=== PATIENT | male | born 1980 | race Caucasian/White ===

== ENCOUNTER 2017-01-11 22:10 | Emergency (ER) | payer BC ==
[~2017-01-11] VITALS: Ht 170.2 cm; Wt 77.1 kg
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
--- NOTE | 2017-01-11 22:21 | NUR ---
DR LEMA AT BEDSIDE FOR EVAL.
--- NOTE | 2017-01-11 22:58 | NUR ---
XRAY AT BEDSIDE
[2017-01-11] MEDS ORDERED: MORPHINE SULFATE INJ 2 MG/ML DISP.SYRIN IV ONE (23:00)
[2017-01-11] MEDS ORDERED: IV NS 0.9% 1,000 ML BAG IV ONE (23:00)
[2017-01-11] MEDS ORDERED: ONDANSETRON HCL/PF 4 MG/2 ML VIAL IVP ONE (23:00)
[2017-01-11] MEDS ORDERED: IV SET PRIMARY 1 EA INFUS.SET MC ONE (23:05)
[2017-01-11] MEDS ORDERED: ONDANSETRON HCL/PF 4 MG/2 ML VIAL ONE (23:05)
[2017-01-11] MEDS ORDERED: MORPHINE SULFATE INJ 4 MG/ML DISP.SYRIN ONE (23:05)
[2017-01-11] MEDS ORDERED: IV NS 0.9% 1,000 ML ONE (23:05)
[2017-01-11 23:18] LABS: BASOPHILS % (AUTO) 0.3 % (0.0-2.0); EOSINOPHILS # (AUTO) 0.1 /CMM (0.0-0.7); EOSINOPHILS % (AUTO) 1.1 % (0.0-6.0); HEMATOCRIT 46 % (39-51); HEMOGLOBIN 15.1 g/dL (13.5-17.5); LYMPHOCYTES # (AUTO) 2.2 /CMM (0.8-4.8); LYMPHOCYTES % (AUTO) 19.6 % (20.0-44.0); MEAN CORPUSCULAR HEMOGLOBIN 26 PG (26.0-33.0); MEAN CORPUSCULAR HGB CONC 33 g/dl (31.0-36.0); MEAN CORPUSCULAR VOLUME 79 fL (80-96); MONOCYTES # (AUTO) 1.1 /CMM (0.1-1.30); MONOCYTES % (AUTO) 9.5 % (2.0-12.0); NEUTROPHILS # (AUTO) 7.9 /CMM (1.8-8.9); NEUTROPHILS % (AUTO) 69.5 % (43.0-81.0); PLATELET COUNT (AUTO) 271 /CMM (150-450); RDW COEFFICIENT OF VARIATION 14.8 (11.5-15.0); RED BLOOD CELL COUNT(AUTO) 5.84 MIL/uL (4.5-6.0); WHITE BLOOD COUNT (AUTO) 11.4 K/uL (4.3-11.0)
[2017-01-11 23:31] LABS: CALCIUM, SERUM 8.8 mg/dL (8.5-10.1); POTASSIUM 3.9 mmol/L (3.5-5.1)
[2017-01-11 23:37] LABS: INR 0.97 (0.87-1.13); PROTHROMBIN TIME 10.4 SECS (9.5-12.7)
[2017-01-11] MEDS ORDERED: CT SWABBABLE VALVE TRANS SET 1 EA INFUS.SET MC ONE (23:39)
[2017-01-11] MEDS ORDERED: IOHEXOL-300 100 ML VIAL IV ONE (23:39)
[2017-01-11] MEDS ORDERED: IV NS 0.9% 250 ML IV ONE (23:39)
--- NOTE | 2017-01-11 23:48 | NUR ---
PT TO CT.
[2017-01-12] MEDS ORDERED: ONDANSETRON HCL/PF 4 MG/2 ML VIAL ONE (00:25)
[2017-01-12] MEDS ORDERED: HYDROMORPHONE 1 MG/1 ML DISP.SYRIN ONE (00:25)
[2017-01-12] MEDS ORDERED: ONDANSETRON HCL/PF 4 MG/2 ML VIAL IV ONE (00:30)
[2017-01-12] MEDS ORDERED: HYDROMORPHONE 1 MG/1 ML DISP.SYRIN IV ONE (00:30)
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
--- NOTE | 2017-01-12 01:28 | NUR ---
[facility] CALLED FOR HIGHER LEVEL OF CARE TRANSFER REQUEST. FACESHEET AND CT FAXED TO [phone]
--- NOTE | 2017-01-12 01:35 | NUR ---
PT PLACED ON C SPINE/ LOG ROLL PRECAUTION PER DR. LEMA.
--- NOTE | 2017-01-12 01:48 | NUR ---
[facility] ALS TRANSPOT 1HR
--- NOTE | 2017-01-12 01:53 | NUR ---
REPORT GIVEN TO JONATAN GARCÍA FOR CONTINUE OF CARE. [phone]. ACCEPTING ER MD: TRAUMA MD DR. MUNOZ.
[2017-01-12] MEDS ORDERED: LIDOCAINE 2% JEL UROJET 10 ML MM ONE (02:00)
--- NOTE | 2017-01-12 02:01 | NUR ---
URINE COLLECTED. CALLED LAB FOR HEAD OF SALES.
[2017-01-12 02:34] LABS: CANNABINOID, URINE POSITIVE (NEGATIVE); PHENCYCLIDINE SCREEN,URINE NEGATIVE (NEGATIVE)
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
[2017-01-12 02:52] VITALS: BP 127/72
== END 2017-01-12 03:02 ==
LOC: ER 22:12
DX: S09.90XA Unspecified injury of head, initial encounter (principal); S80.11XA Contusion of right lower leg, initial encounter; R20.8 Other disturbances of skin sensation; F17.200 Nicotine dependence, unspecified, uncomplicated; Z88.2 Allergy status to sulfonamides; Z90.49 Acquired absence of other specified parts of digestive tract; V49.50XA Passenger injured in collision with unspecified motor vehicles in traffic accident, initial encounter; Y93.89 Activity, other specified; Y92.89 Other specified places as the place of occurrence of the external cause; Y99.9 Unspecified external cause status
CPT/HCPCS: 36415; 70450; 71260; 72125; 72193; 73590 ×2; 74160; 80048; 80305; 85025; 85730; 96361; 96374; 96375; 96376; 99285; A4606; G0480; J1170; J2270; J2405 ×2; J7030; J7050; L0172; Q9967; Z7610